=== PATIENT | female | born 1960 | race Two or more races ===

== ENCOUNTER 2019-02-23 17:06 | Emergency (ER) | payer OTHER ==
[~2019-02-23] VITALS: Ht 152.4 cm; Wt 47.2 kg
[2019-02-23 17:21] VITALS: Ht 152.4 cm; Wt 47.2 kg
[2019-02-23 20:42] LABS: BASOPHIL % 0.5 % (0-2); PLATELET COUNT 255 x10^3mcL (130-400); RED CELL DISTRIBUTION WIDTH 14.3 % (11.5-14.5)
[2019-02-23 20:50] LABS: CALCIUM 9.7 mg/dL (8.5-10.1); CARBON DIOXIDE 26.8 mmol/L (21-32); CHLORIDE SERUM 103 mmol/L (98-107); CREATININE SERUM 0.8 mg/dL (0.6-1.0); GFR1 > 60 mL/min; GLUCOSE SERUM 168 mg/dL (74-106); SODIUM SERUM 142 mmol/L (136-145)
[2019-02-23 20:55] LABS: ALBUMIN 4.5 g/dL (3.4-5.0); ALKALINE PHOSPHATASE 82 U/L (46-116); ALT/SGPT 28 U/L (14-59); AST/SGOT 26 U/L (15-37); BILIRUBIN TOTAL 0.33 mg/dL (0.20-1.00)
[2019-02-23 20:56] LABS: TOTAL PROTEIN, SERUM 8.3 g/dL (6.4-8.2)
[2019-02-24 00:38] VITALS: BP 121/84
== END 2019-02-24 00:38 | disposition short-term general hospital (02) ==
LOC: ED 17:06
PROVIDERS: Emergency Medicine
DX: J98.01 Acute bronchospasm (principal); F17.200 Nicotine dependence, unspecified, uncomplicated; I10 Essential (primary) hypertension; E11.9 Type 2 diabetes mellitus without complications
CPT/HCPCS: 83880; 85378; J1956; J2930; J7030; J7512; J7613; J7644